=== PATIENT | male | born 1995 ===

== ENCOUNTER 2021-01-08 18:52 | Emergency (ER) | payer SELFPAY ==
[2021-01-08 19:48] VITALS: BP 118/66
[2021-01-08] MEDS ORDERED: ACETAMINOPHEN 325 MG TAB PO ONE (21:44)
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
== END 2021-01-09 00:05 | disposition home or self-care (01) ==
LOC: ED 18:52
DX: R07.81 Pleurodynia (principal); R51.9 Headache, unspecified; Z98.890 Other specified postprocedural states; V49.49XA Driver injured in collision with other motor vehicles in traffic accident, initial encounter; Y92.410 Unspecified street and highway as the place of occurrence of the external cause; Y93.89 Activity, other specified; Y99.8 Other external cause status